=== PATIENT | female | born 1970 ===

== ENCOUNTER 2021-06-30 22:05 | Emergency (ER) | payer SELFPAY ==
[2021-06-30 22:11] VITALS: BP 163/81
--- NOTE | 2021-07-04 10:32 | Electrocardiograph Report ---
[facility] Test Date: 2021-06-30 Test Time: 22:20:06 Pat Name: BLANCA HOLLEY Department: Room: Gender: F Director [employer]: ROXANA : 1970 Requested By: NINA HART Order Number: [id number] Reading MD: De Saez Measurements Intervals [place] Rate: 76 P: 64 RI: 126 QRS: 57 QRSD: 85 T: 73 QT: 370 QTc: 416 Interpretive Statements Sinus rhythm No previous ECG available for comparison Electronically Signed On 07-04-2021 10:32:30 EST by De Saez
== END 2021-07-01 01:45 | disposition left against medical advice (07) ==
LOC: ED 22:05
DX: R07.89 Other chest pain (principal); Z53.21 Procedure and treatment not carried out due to patient leaving prior to being seen by health care provider
CPT/HCPCS: 93005